=== PATIENT | female | born 1975 | race Caucasian/White ===

== ENCOUNTER 2018-04-15 08:08 | Outpatient (CLI) | payer BC ==
--- NOTE | 2018-04-15 09:15 | RAD ---
LUMBAR SPINE RADIOGRAPHS FOUR VIEWS: Date: 04-15-18 Provided Clinical History: Intervertebral disc disorder with radiculopathy. FINDINGS: Comparison is made with 03-23-17. 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 This was denoted L5 on the prior examination. 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 There is slight ant erolisthesis of L4 on L5. There is no evidence for abnormal translational motion with flexion or exte nsion. Lower lumbar spine facet degenerative changes are prominent. IMPRESSION: Stable exam. POS: OFF
--- NOTE | 2018-04-15 12:17 | MRI ---
MRI LUMBAR SPINE WITHOUT CONTRAST: Date: 04/15/18 HISTORY: Intervertebral disc disorder with radiculopathy of the lumbosacral region; low back pain with right l eg radiculopathy, which has been worsening. Patient fell 2 weeks ago FINDINGS: Comparison made with exam of MRI of 03/23/17. Correlation is also made with the lumbar radiographs of 04/15/18. Again, for the purpose of this discussion, the transitional vertebra has been labeled L5, similar to the previous MRIs. The vertebral body heights and marrow signal are maintained. Conus medullaris ends at L1. Annular fis sure involving the left posterolateral aspect of L3-4 disc is again noted. There is a tiny right fora ashkan disc protrusion at L4-5 level without impingement of the exiting nerve root or neural foraminal stenosis. There are facet hypertrophic changes at multiple levels, most prominent at L4-5 level. No central canal stenosis or significant neural foraminal stenosis is seen. The paraspinal musculature i s normal. IMPRESSION: Mild degenerative changes with tiny right disc protrusion at L4-5 level. No evidence of significant c entral canal or neural foraminal stenosis. POS: [facility]
== END 2018-04-15 08:09 | disposition home or self-care (01) ==
LOC: BICMRI 08:08
PROVIDERS: ATTEND Nurse Practitioner Family
DX: M51.17 Intervertebral disc disorders with radiculopathy, lumbosacral region (principal); M47.816 Spondylosis without myelopathy or radiculopathy, lumbar region; M51.26 Other intervertebral disc displacement, lumbar region
CPT/HCPCS: 72110; 72148

== ENCOUNTER 2018-07-17 06:29 | Day surgery (SDC) | payer BC ==
[2018-07-10 09:12] VITALS: BMI 45.7
--- NOTE | 2018-07-16 14:59 | HP ---
HISTORY OF PRESENT ILLNESS: Ms. De Jesus is a 43-year-old woman known to us from previous evaluations of essentially bilateral lower back pain and some right-sided radicular leg pain with a CT scan that ultimately revealed a large L5-S1 pseudoarthrosis on the right. She has been treating this with injections and therapy and while they provided some short-term relief. Her pain continues to return and is rather significant in nature. She hopes to move forward with surgery if possible. PAST MEDICAL HISTORY: Significant for back pain and chronic pain. CURRENT MEDICATIONS: 1. Cyclobenzaprine. 2. Tylenol No. 3. 3. Phentermine. ALLERGIES: NO KNOWN DRUG ALLERGIES. PAST SURGICAL HISTORY: Hysterectomy, section. PHYSICAL EXAMINATION: GENERAL: The patient is alert and oriented x3. MUSCULOSKELETAL: Gait is severely antalgic and slow. Lower extremity motor exam is limited by pain. ASSESSMENT: Lumbar back pain, lumbar radiculopathy, and spinal pseudarthrosis. PLAN: Dr. Thurston met with the patient, reviewed imaging, and advocated for L5-S1 fusion. He explained to the patient the risks, benefits, and alternatives to the procedure. The patient expressed understanding and elected to move forward with surgery as discussed. I do believe the patient is mentally competent and capable of making medical decisions for herself. We will move forward with surgery as planned. Job ID: [id number]
[2018-07-17] MEDS ORDERED: CEFAZOLIN 2 GM/50 ML BAG ONE ×2 (07:55→15:10)
[2018-07-17] MEDS ORDERED: Thrombin 5000 UNITS/5 ML VIAL ONE (09:00)
[2018-07-17] MEDS ORDERED: Bupivacaine HCl 0.5%/Epinephrine 1:200,000/PF 30 ml Vial ONE (09:00)
[2018-07-17] MEDS ORDERED: Fentanyl 100 MCG/2 ML VIAL ONE ×2 (09:10→12:23)
[2018-07-17] MEDS ORDERED: Ketamine 50 MG/ML (10ML VIAL) ONE (09:15)
[2018-07-17] MEDS ORDERED: Midazolam HCl 2 mg/2 ml Vial ONE (12:05)
--- NOTE | 2018-07-17 12:29 | OP ---
DATE OF PROCEDURE: 07/17/2018 PRINCIPAL MECHANICAL ENGINEER: Jere Saucedo PA-C. INDICATION: Pain. DIAGNOSIS: Lumbosacral pseudoarthrosis with back pain and radiculopathy. PROCEDURE PERFORMED: L5-S1 fusion. ANESTHESIA: General. DESCRIPTION OF PROCEDURE: The patient was brought into the operating room and placed under general anesthesia. She was flipped from the supine to prone position on operating room table. A linear incision was planned over L5 and S1. After prepping and draping and after an appropriate operative pause, the incision was created and the soft tissues were swept away from midline. A self-retaining retractor was placed in the wound for optimal exposure. After confirming the appropriate level C-arm fluoroscopy, high-speed cutting drill bit as well as Kerrisons were used to perform a laminectomy bilaterally in order to expose the medial wall of the pedicles at L5 and S1. With the aid of C-arm fluoroscopy, pedicles were placed into the pedicles. An intraoperative 3D CT scan was performed to confirm the appropriate location of the hardware. A earnestine was then placed across the screws and finally tightened. Allograft and autograft material were placed in the lateral confines of the instrumentation construct. The wound was irrigated. Hemostasis was maintained throughout. The wound was then closed in anatomic layers and a pressure dressing was applied. There were no known procedural complications. Job ID: [id number]
[2018-07-17] MEDS ORDERED: Metoclopramide HCl 10 MG/2 ML VIAL ONE (13:21)
[2018-07-17] MEDS ORDERED: Ondansetron PF 4 MG/2 ML Vial ONE (13:21)
[2018-07-17] MEDS ORDERED: PROVENTIL INHALER 6.7 G (200 INHALATIONS) ONE (13:21)
[2018-07-17] MEDS ORDERED: Rocuronium Bromide 10 MG/ML (10ML VIAL) ONE (13:21)
[2018-07-17] MEDS ORDERED: Lidocaine 1% PF 5 ML VIAL ONE (13:21)
[2018-07-17] MEDS ORDERED: Dexamethasone 20 MG/5 ML VIAL ONE (13:21)
[2018-07-17] MEDS ORDERED: PROPOFOL 200 MG/20 ML VIAL ONE (13:21)
[2018-07-17] MEDS ORDERED: Glycopyrrolate 0.2 MG/ML 5 ML SYRINGE ONE (13:21)
[2018-07-17] MEDS ORDERED: HYDROcodone/Acetaminophen 5/325 mg Tablet ONE (15:47)
== END 2018-07-17 16:08 | disposition home or self-care (01) ==
LOC: SDC 06:29
PROVIDERS: ATTEND Neurological Surgery
PROC: 0SG307J Fusion of Lumbosacral Joint with Autologous Tissue Substitute, Posterior Approach, Anterior Column, Open Approach (ICD-10-PCS; principal; 2018-07-17)
DX: M54.17 Radiculopathy, lumbosacral region (principal); Z90.710 Acquired absence of both cervix and uterus; Z98.890 Other specified postprocedural states; Z79.899 Other long term (current) drug therapy
CPT/HCPCS: 76000; C1713; J0670; J1100; J2001; J2250; J2405; J2704; J2765; J3010

== ENCOUNTER 2019-03-04 12:04 | Outpatient (CLI) | payer BC ==
--- NOTE | 2019-03-04 13:57 | ULT ---
THYROID ULTRASOUND: INDICATION: Nodule. COMPARISON: Comparison is made to a thyroid ultrasound dated 12/08/2412/26/2012. That exam described a tiny hypoechoic nodule in the upper left lobe measuring 1-2 mm. FINDINGS: On today's exam, there is a suggestion of an isoechoic nodule in the mid left lobe measuring approxim ately 1.0 cm. The borders are ill defined and this is not well seen in the longitudinal plane. There is a suggestion of a tiny cystic nodule in the superior right lobe measuring 3 mm. IMPRESSION: Question isoechoic nodule in the mid left lobe measuring up to 1 cm. This may represent a heterogene ous gland rather than a defined nodule. Recommend short-term followup with repeat thyroid ultrasound in 6 months to reevaluate. POS: [facility]
--- NOTE | 2019-03-04 14:09 | MMO ---
Bilateral MAMMO Bilat Screen [facility]. CLINICAL HISTORY: Patient is 43 years old and is seen for screening. The patient has no family history of breast cancer. The patient has no personal history of cancer. The patient has a history of right Ultrasound Guided Core Biopsy in August,. VIEWS: The views performed were: bilateral craniocaudal with tomosynthesis and bilateral mediolateral oblique with tomosynthesis. FILMS COMPARED: The present examination has been compared to prior imaging studies performed at [facility] on 08/09/2011 and 07/24/2016. This study has been interpreted with the assistance of computer-aided detection. MAMMOGRAM FINDINGS: There are scattered fibroglandular densities. There is a stable mass with associated biopsy clip seen in the right breast. There are no suspicious masses, suspicious calcifications, or new areas of architectural distortion. IMPRESSION: THERE IS NO MAMMOGRAPHIC EVIDENCE OF MALIGNANCY. A ROUTINE FOLLOW-UP MAMMOGRAM IN 1 YEAR IS RECOMMENDED. THE RESULTS OF THIS EXAM WERE SENT TO THE PATIENT. ACR BI-RADS Category 2 - Benign finding MAMMOGRAPHY NOTE: 1. A negative mammogram report should not delay a biopsy if a dominant of clinically suspicious mass is present. 2. Approximately 10% to 15% of breast cancers are not detected by mammography. 3. Adenosis and dense breasts may obscure an underlying neoplasm. Reported by: THAO TORIBIO MD Electonically Signed: [id number]
== END 2019-03-04 12:05 | disposition home or self-care (01) ==
LOC: BICMAMMO 12:04
PROVIDERS: ATTEND Family Medicine
DX: Z12.31 Encounter for screening mammogram for malignant neoplasm of breast (principal); E04.1 Nontoxic single thyroid nodule
CPT/HCPCS: 76536; 77063; 77067

== ENCOUNTER 2020-07-23 09:24 | Outpatient (CLI) | payer OTHER | END 2020-07-23 09:25 | disposition home or self-care (01) | LOC: DTY/OP 09:24 | PROVIDERS: ATTEND Surgery | DX: E66.01 Morbid (severe) obesity due to excess calories (principal) | CPT/HCPCS: 97802 ==

== ENCOUNTER 2020-08-04 08:35 | Outpatient (CLI) | payer OTHER | END 2020-08-04 08:36 | disposition home or self-care (01) | LOC: EKG 08:35 | PROVIDERS: ATTEND Family Medicine | DX: Z01.810 Encounter for preprocedural cardiovascular examination (principal) | CPT/HCPCS: 93005; 93010 ==

== ENCOUNTER 2020-09-03 13:30 | Inpatient (IN) | payer OTHER ==
[2020-09-08] MEDS ORDERED: Heparin 5,000 UNITS/ML VIAL ONE (10:39)
[2020-09-08] MEDS ORDERED: EPINEPHrine 1 MG/ML AMP ONE (10:43)
[2020-09-08] MEDS ORDERED: Bupivacaine 0.25% HCL 30 ML VIAL ONE (10:43)
[2020-09-08] MEDS ORDERED: Midazolam HCl 2 mg/2 ml Vial ONE (11:44)
[2020-09-08] MEDS ORDERED: Fentanyl 100 MCG/2 ML VIAL ONE ×5 (11:44→16:05)
[2020-09-08] MEDS ORDERED: PROPOFOL 200 MG/20 ML VIAL ONE (12:39)
[2020-09-08] MEDS ORDERED: Dexamethasone 20 MG/5 ML VIAL ONE (12:39)
[2020-09-08] MEDS ORDERED: PHENYLEPHRINE-NS 100 MCG/ML 10 ML SYRINGE ONE (12:39)
[2020-09-08] MEDS ORDERED: Ondansetron PF 4 MG/2 ML Vial ONE (12:39)
[2020-09-08] MEDS ORDERED: Rocuronium Bromide 10 MG/ML (10ML VIAL) ONE (12:39)
[2020-09-08] MEDS ORDERED: Lidocaine 1% PF 5 ML VIAL ONE (12:39)
[2020-09-08] MEDS ORDERED: Esmolol 100 MG/10 ML VIAL ONE (12:39)
[2020-09-08] MEDS ORDERED: Succinylcholine 200 MG/10 ml SYRINGE FS ONE (14:33)
[2020-09-08] MEDS ORDERED: SUGAMMADEX SODIUM 200 MG/2 ML VIAL ONE (14:34)
[2020-09-08] MEDS ORDERED: Naloxone HCl 0.4 mg/ml Vial IV PRN (15:15)
[2020-09-08] MEDS ORDERED: Meperidine HCl/PF 25 MG/ML VIAL SLOW IVP PRN (15:15)
[2020-09-08] MEDS ORDERED: fentaNYL Citrate/PF 2,000 MCG in Sodium Chloride 0.9% 60 ML IV PRN (15:15)
[2020-09-08] MEDS ORDERED: Promethazine HCl 25 MG/ML VIAL SLOW IVP PRN (15:15)
[2020-09-08] MEDS ORDERED: Promethazine HCl 25 MG/ML VIAL IM PRN ×3 (15:15→15:18)
[2020-09-08] MEDS ORDERED: diphenhydrAMINE 50 MG/ML VIAL IVP PRN ×2 (15:15→15:18)
[2020-09-08] MEDS ORDERED: Communication Order-Pharmacy FS SCH (15:15)
[2020-09-08] MEDS ORDERED: diphenhydrAMINE 50 MG/ML VIAL IM PRN (15:15)
[2020-09-08] MEDS ORDERED: diphenhydrAMINE 25 MG CAP PO PRN (15:15)
[2020-09-08] MEDS ORDERED: Ondansetron HCl/PF 4 MG/2 ML Vial IVP PRN (15:15)
[2020-09-08] MEDS ORDERED: Zolpidem Tartrate 5 MG TAB PO PRN (15:15)
[2020-09-08] MEDS ORDERED: Ondansetron PF 4 MG/2 ML Vial IVP PRN ×2 (15:15→15:18)
[2020-09-08] MEDS ORDERED: Dextrose 5% in Water 1,000 ML IV PRN (15:18)
[2020-09-08] MEDS ORDERED: Albuterol 200 PUFF (6.7GM INHALER) INH PRN (15:18)
[2020-09-08] MEDS ORDERED: Dextrose 50% Abboject 50 ML SYRINGE SLOW IVP PRN (15:18)
[2020-09-08] MEDS ORDERED: Hydrocodone-Acetamin 15 ML UDCUP PO PRN (15:18)
[2020-09-08] MEDS ORDERED: hydrALAZINE 20 MG/ML VIAL SLOW IVP PRN (15:18)
[2020-09-08] MEDS: D5 1/2 NS w/20 mEq KCL 1,000 ML IV SCH (19:00)
[2020-09-08 19:45] VITALS: BMI 49.3
[2020-09-08] MEDS ORDERED: Enoxaparin Sodium 40 MG/0.4 ML SYRINGE SC SCH (21:00)
[2020-09-08] MEDS ORDERED: Pregabalin 50 MG CAP PO SCH (21:00)
[2020-09-08] MEDS ORDERED: QUETIAPINE FUMARATE 50 MG PO SCH (21:00)
[2020-09-09] MEDS: D5 1/2 NS w/20 mEq KCL 1,000 ML IV SCH ×2 (03:07→11:09)
[2020-09-09 05:58] LABS: #Lymphocytes 1.7 thou/uL (1.20-3.40); #Monocytes 0.7 thou/uL (0.11-0.59); #Neutrophils 7.8 thou/uL (1.40-6.50); %Basophils 0.1 % (0.0-1.0); %Eosinophils 0.1 % (0.0-10.0); %Lymphocytes 16.6 % (21.0-51.0); %Monocytes 7.1 % (0.0-10.0); %Neutrophils 76.2 % (42.0-75.0); Mean Corpuscular HGB CONC 34.8 g/dL (32.0-36.0); Mean Corpuscular Hemoglobin 30.5 pg (27.0-31.0); Mean Corpuscular Volume 87.7 fL (78.0-98.0); Mean Platelet Volume 8.4 fL (7.4-10.4); Platelet Count 279 thou/uL (130-400); RBC Distribution Width 11.8 % (11.5-14.5); Red Blood Cell (RBC) Count 3.93 mill/uL (4.20-5.40); White Blood Cell (WBC) Count 10.2 thou/uL (4.8-10.8)
[2020-09-09 06:14] LABS: Anion Gap 10 mmol/L (10-20); BUN (Urea Nitrogen) 8 mg/dL (7.0-18.7); Calc. Creatinine Clearance 217 mL/min (70-130); Calcium 8.1 mg/dL (7.8-10.44); Carbon Dioxide 24 mmol/L (22-29); Chloride 104 mmol/L (98-107); Glucose 133 mg/dL (70-105); Potassium 4.1 mmol/L (3.5-5.1); Sodium 134 mmol/L (136-145)
[2020-09-09] MEDS: Hydrocodone-Acetamin 15 ML UDCUP PO PRN ×2 (08:24→12:24)
[2020-09-09] MEDS ORDERED: SYMBICORT INH SCH (09:00)
[2020-09-09] MEDS ORDERED: Pantoprazole 40 MG VIAL IVP SCH (09:00)
[2020-09-09 12:18] VITALS: BP 113/74; TEMP 98.4
== END 2020-09-09 12:30 | disposition home or self-care (01) | DRG 621 ==
LOC: SURG A 09-08 10:02 → EDSTATUS 09-08 13:30 → SURG B 09-08 17:46
PROVIDERS: ADMIT Surgery; ATTEND Surgery
PROC: 0DB64Z3 Excision of Stomach, Percutaneous Endoscopic Approach, Vertical (ICD-10-PCS; principal; 2020-09-08)
PROC: 0BQT4ZZ Repair Diaphragm, Percutaneous Endoscopic Approach (ICD-10-PCS; 2020-09-08)
PROC: 8E0W4CZ Robotic Assisted Procedure of Trunk Region, Percutaneous Endoscopic Approach (ICD-10-PCS; 2020-09-08)
PROC: 0DJ08ZZ Inspection of Upper Intestinal Tract, Via Natural or Artificial Opening Endoscopic (ICD-10-PCS; 2020-09-08)
DX: E66.01 Morbid (severe) obesity due to excess calories (principal); Z20.822 Contact with and (suspected) exposure to COVID-19; F32.9 Major depressive disorder, single episode, unspecified; G89.29 Other chronic pain; M54.9 Dorsalgia, unspecified; K44.9 Diaphragmatic hernia without obstruction or gangrene; Z79.899 Other long term (current) drug therapy; Z68.42 Body mass index [BMI] 45.0-49.9, adult; Z98.51 Tubal ligation status; Z90.710 Acquired absence of both cervix and uterus; Z83.3 Family history of diabetes mellitus; Z87.891 Personal history of nicotine dependence
CPT/HCPCS: 36415; 80048; 85025; 88307; C9113; J0171; J0690; J1100; J1644; J1650; J2250; J2405; J2704; J3010; J3480; S0020

== ENCOUNTER 2020-10-04 10:18 | Day surgery (SDC) | payer OTHER ==
[2020-10-04] MEDS ORDERED: Sodium Chloride 0.9% 20 ML ONE (10:25)
[2020-10-04] MEDS ORDERED: Ondansetron PF 4 MG/2 ML Vial IVP PRN (10:29)
[2020-10-04] MEDS ORDERED: Sodium Chloride 0.9% 1,000 ML IV SCH (10:30)
[2020-10-04] MEDS ORDERED: Thiamine HCl 200 MG/2 ML VIAL SLOW IVP SCH (10:30)
[2020-10-04] MEDS ORDERED: Multivitamins, Adult 10 ML in Sodium Chloride 0.9% 1,000 ML IV SCH (11:00)
== END 2020-10-04 13:04 | disposition home or self-care (01) ==
LOC: ONC/OP 10:18
PROVIDERS: ATTEND Surgery
DX: E86.0 Dehydration (principal)
CPT/HCPCS: 96361; 96365; 96366; 96375; J3411; J7050

== ENCOUNTER 2020-10-18 09:32 | Day surgery (SDC) | payer OTHER ==
[2020-10-18] MEDS ORDERED: Ondansetron PF 4 MG/2 ML Vial IVP PRN (09:46)
[2020-10-18] MEDS ORDERED: Sodium Chloride 0.9% 20 ML ONE (09:48)
[2020-10-18] MEDS ORDERED: Sodium Chloride 0.9% 1,000 ML IV SCH (10:00)
[2020-10-18] MEDS ORDERED: Multivitamins, Adult 10 ML in Sodium Chloride 0.9% 1,000 ML IV SCH (10:00)
[2020-10-18] MEDS ORDERED: Thiamine HCl 200 MG/2 ML VIAL SLOW IVP SCH (10:00)
[2020-10-18 11:36] VITALS: BP 119/68; TEMP 97.8
== END 2020-10-18 12:33 | disposition home or self-care (01) ==
LOC: ONC/OP 09:32
PROVIDERS: ATTEND Surgery
DX: E86.0 Dehydration (principal)
CPT/HCPCS: 96361; 96365; 96366; J2405; J3411; J7050

== ENCOUNTER 2020-10-19 11:04 | Inpatient (IN) | payer OTHER ==
[~2020-10-19 11:04] MED LIST: Iopamidol 370 76% 100 ML VIAL ONE; Iopamidol 370 76% 50 ML VIAL FS ONE
[2020-10-19] MEDS ORDERED: DOBUTamine 250 MG/20 ML VIAL ONE (11:47)
[2020-10-19] MEDS ORDERED: Promethazine HCl 25 MG/ML VIAL ONE (11:50)
[2020-10-19] MEDS ORDERED: Morphine 4 MG/ML VIAL ONE (11:50)
[2020-10-19 11:59] LABS: #Basophils 0.1 thou/uL (0.0-0.2); #Eosinphils 0.2 thou/uL (0.0-0.7); #Lymphocytes 1.8 thou/uL (1.20-3.40); #Monocytes 1.1 thou/uL (0.11-0.59); #Neutrophils 8.3 thou/uL (1.40-6.50); %Basophils 0.5 % (0.0-1.0); %Eosinophils 1.5 % (0.0-10.0); %Lymphocytes 15.8 % (21.0-51.0); %Neutrophils 72.2 % (42.0-75.0); Hemoglobin 14.5 g/dL (12.0-16.0); Mean Corpuscular Hemoglobin 28.7 pg (27.0-31.0); Mean Platelet Volume 10.3 fL (7.4-10.4); Platelet Count 229 thou/uL (130-400); RBC Distribution Width 12.5 % (11.5-14.5); Red Blood Cell (RBC) Count 5.04 mill/uL (4.20-5.40); White Blood Cell (WBC) Count 11.5 thou/uL (4.8-10.8)
[2020-10-19 12:27] LABS: ALT (SGPT) 16 U/L (8-55); AST (SGOT) 12 U/L (5-34); Albumin 3.8 g/dL (3.5-5.0); Alkaline Phosphatase 58 U/L (40-110); Anion Gap 18 mmol/L (10-20); BUN (Urea Nitrogen) 5 mg/dL (7.0-18.7); Bilirubin, Total 1.6 mg/dL (0.2-1.2); Calc. Creatinine Clearance 0 mL/min (70-130); Calcium 9.4 mg/dL (7.8-10.44); Carbon Dioxide 17 mmol/L (22-29); Chloride 110 mmol/L (98-107); Glucose 102 mg/dL (70-105); Lipase 48 U/L (8-78); Protein, Total 6.8 g/dL (6.0-8.3); Sodium 142 mmol/L (136-145)
[2020-10-19 12:29] LABS: Potassium 2.9 mmol/L (3.5-5.1)
[2020-10-19] MEDS ORDERED: Ondansetron PF 4 MG/2 ML Vial ONE (13:13)
[2020-10-19] MEDS ORDERED: Magnesium 2 GM/50 ML BAG (IN WATER) ONE (13:13)
[2020-10-19] MEDS ORDERED: Ondansetron ODT 4 MG TAB SL PRN (20:45)
[2020-10-19] MEDS ORDERED: Ondansetron PF 4 MG/2 ML Vial IVP PRN (20:45)
[2020-10-19] MEDS ORDERED: Sodium Chloride 0.9% 1,000 ML IV SCH (20:45)
[2020-10-19] MEDS ORDERED: Promethazine HCl 25 MG/ML VIAL IM PRN (21:13)
[2020-10-19] MEDS ORDERED: Dextrose 50% Abboject 50 ML SYRINGE SLOW IVP PRN (21:13)
[2020-10-19] MEDS ORDERED: Dextrose 5% in Water 1,000 ML IV PRN (21:13)
[2020-10-19] MEDS ORDERED: hydrALAZINE 20 MG/ML VIAL SLOW IVP PRN (21:13)
[2020-10-19] MEDS: Enoxaparin Sodium 40 MG/0.4 ML SYRINGE SC SCH (21:32)
[2020-10-19 21:50] VITALS: BMI 43.9
[2020-10-19] MEDS: Potassium Chloride 20 MEQ in Premix Bag 1 BAG IVPB SCH (23:28)
[2020-10-19] MEDS: D5 1/2 NS w/20 mEq KCL 1,000 ML IV SCH (23:35)
[2020-10-20 01:16] LABS: SARS-CoV-2 PCR by NAA Not Detected (NotDetected)
[2020-10-20 05:58] LABS: Anion Gap 12 mmol/L (10-20); BUN (Urea Nitrogen) Less than 4 mg/dL (7.0-18.7); Calc. Creatinine Clearance 184 mL/min (70-130); Calcium 7.7 mg/dL (7.8-10.44); Carbon Dioxide 16 mmol/L (22-29); Chloride 112 mmol/L (98-107); Glucose 120 mg/dL (70-105); Sodium 137 mmol/L (136-145)
[2020-10-20] MEDS ORDERED: Calcium Gluconate 4.6 MEQ in Sodium Chloride 0.9% 100 ML IVPB SCH (07:06)
[2020-10-20] MEDS: Ondansetron PF 4 MG/2 ML Vial IVP PRN ×2 (08:36→14:43)
[2020-10-20] MEDS: D5 1/2 NS w/20 mEq KCL 1,000 ML IV SCH ×3 (08:36→21:11)
[2020-10-20] MEDS: Pantoprazole 40 MG VIAL IVP SCH (08:37)
[2020-10-20] MEDS: Potassium Chloride 20 MEQ in Premix Bag 1 BAG IVPB SCH ×2 (09:41→12:04)
[2020-10-20] MEDS: Enoxaparin Sodium 40 MG/0.4 ML SYRINGE SC SCH (21:11)
[2020-10-21] MEDS: Pantoprazole 40 MG VIAL IVP SCH (07:22)
[2020-10-21] MEDS: D5 1/2 NS w/20 mEq KCL 1,000 ML IV SCH ×3 (07:22→21:56)
[2020-10-21 08:37] LABS: Anion Gap 11 mmol/L (10-20); BUN (Urea Nitrogen) Less than 4 mg/dL (7.0-18.7); Calc. Creatinine Clearance 196 mL/min (70-130); Calcium 8.2 mg/dL (7.8-10.44); Carbon Dioxide 22 mmol/L (22-29); Chloride 107 mmol/L (98-107); Glucose 117 mg/dL (70-105); Sodium 137 mmol/L (136-145)
[2020-10-21 09:28] LABS: Potassium 2.8 mmol/L (3.5-5.1)
[2020-10-21] MEDS ORDERED: Promethazine HCl 25 MG/ML VIAL ONE (09:48)
[2020-10-21] MEDS ORDERED: Fentanyl 100 MCG/2 ML VIAL ONE (10:23)
[2020-10-21] MEDS ORDERED: PROPOFOL 200 MG/20 ML VIAL ONE (10:40)
[2020-10-21] MEDS ORDERED: Ondansetron HCl/PF 4 MG/2 ML Vial IVP PRN (10:57)
[2020-10-21] MEDS ORDERED: Promethazine HCl 25 MG/ML VIAL IM PRN (10:57)
[2020-10-21] MEDS ORDERED: Promethazine HCl 25 MG/ML VIAL SLOW IVP PRN (10:57)
[2020-10-21] MEDS: Potassium Chloride 20 MEQ in Premix Bag 1 BAG IVPB SCH ×2 (14:08→18:59)
[2020-10-21] MEDS: Ondansetron PF 4 MG/2 ML Vial IVP PRN (18:10)
[2020-10-21] MEDS: Enoxaparin Sodium 40 MG/0.4 ML SYRINGE SC SCH (21:54)
[2020-10-22 01:52] LABS: Potassium 2.9 mmol/L (3.5-5.1)
[2020-10-22] MEDS: Potassium Chloride 20 MEQ in Premix Bag 1 BAG IVPB SCH ×2 (02:20→07:50)
[2020-10-22 05:57] LABS: #Basophils 0.1 thou/uL (0.0-0.2); #Eosinphils 0.4 thou/uL (0.0-0.7); #Lymphocytes 3.7 thou/uL (1.20-3.40); #Monocytes 0.8 thou/uL (0.11-0.59); #Neutrophils 2.5 thou/uL (1.40-6.50); %Basophils 1.4 % (0.0-1.0); %Eosinophils 5.6 % (0.0-10.0); %Lymphocytes 49.1 % (21.0-51.0); %Monocytes 10.4 % (0.0-10.0); %Neutrophils 33.7 % (42.0-75.0); Hemoglobin 14.3 g/dL (12.0-16.0); Mean Corpuscular HGB CONC 35.4 g/dL (32.0-36.0); Mean Corpuscular Hemoglobin 30.5 pg (27.0-31.0); Mean Corpuscular Volume 86.2 fL (78.0-98.0); Platelet Count 210 thou/uL (130-400); RBC Distribution Width 12.4 % (11.5-14.5); Red Blood Cell (RBC) Count 4.67 mill/uL (4.20-5.40); White Blood Cell (WBC) Count 7.5 thou/uL (4.8-10.8)
[2020-10-22 06:18] LABS: Anion Gap 11 mmol/L (10-20); BUN (Urea Nitrogen) Less than 4 mg/dL (7.0-18.7); Calc. Creatinine Clearance 206 mL/min (70-130); Calcium 8.9 mg/dL (7.8-10.44); Carbon Dioxide 23 mmol/L (22-29); Chloride 108 mmol/L (98-107); Glucose 91 mg/dL (70-105); Potassium 3.3 mmol/L (3.5-5.1); Sodium 139 mmol/L (136-145)
[2020-10-22] MEDS: D5 1/2 NS w/20 mEq KCL 1,000 ML IV SCH ×3 (06:26→22:25)
[2020-10-22] MEDS: Ondansetron PF 4 MG/2 ML Vial IVP PRN (07:52)
[2020-10-22] MEDS: Pantoprazole 40 MG VIAL IVP SCH (07:52)
[2020-10-22] MEDS ORDERED: Calcium Gluconate 4.6 MEQ in Sodium Chloride 0.9% 100 ML IVPB SCH (13:00)
[2020-10-22] MEDS ORDERED: Potassium Chloride 40 MEQ in Sodium Chloride 0.9% 250 ML 250 ML IVPB SCH (19:45)
[2020-10-22] MEDS: Enoxaparin Sodium 40 MG/0.4 ML SYRINGE SC SCH (20:38)
[2020-10-22] MEDS ORDERED: QUEtiapine Fumarate ER 50 MG TAB PO SCH ×2 (21:00)
[2020-10-23] MEDS: D5 1/2 NS w/20 mEq KCL 1,000 ML IV SCH ×2 (05:41→15:28)
[2020-10-23 05:52] LABS: Anion Gap 8 mmol/L (10-20); BUN (Urea Nitrogen) Less than 4 mg/dL (7.0-18.7); Calc. Creatinine Clearance 216 mL/min (70-130); Calcium 8.5 mg/dL (7.8-10.44); Carbon Dioxide 26 mmol/L (22-29); Chloride 108 mmol/L (98-107); Glucose 94 mg/dL (70-105); Potassium 3.1 mmol/L (3.5-5.1); Sodium 139 mmol/L (136-145)
[2020-10-23] MEDS: Pantoprazole 40 MG VIAL IVP SCH (09:18)
[2020-10-23 13:42] LABS: Magnesium 1.7 mg/dL (1.6-2.6)
[2020-10-23 13:47] LABS: Phosphorus 1.9 mg/dL (2.3-4.7)
[2020-10-23] MEDS ORDERED: Potassium Phosphate 30 MMOL in Sodium Chloride 0.9% 250 ML 250 ML IVPB SCH (14:00)
[2020-10-23] MEDS ORDERED: Magnesium 2 GM/50 ML 2 GM in Premix Bag 1 BAG IVPB SCH (14:00)
[2020-10-23] MEDS: Potassium Bicarbonate/Cit Ac 20 MEQ TAB PO SCH (17:45)
[2020-10-23] MEDS: Enoxaparin Sodium 40 MG/0.4 ML SYRINGE SC SCH (21:04)
[2020-10-24 05:13] LABS: Anion Gap 10 mmol/L (10-20); BUN (Urea Nitrogen) Less than 4 mg/dL (7.0-18.7); Calc. Creatinine Clearance 220 mL/min (70-130); Calcium 7.7 mg/dL (7.8-10.44); Carbon Dioxide 25 mmol/L (22-29); Chloride 106 mmol/L (98-107); Glucose 109 mg/dL (70-105); Magnesium 1.9 mg/dL (1.6-2.6); Phosphorus 4.2 mg/dL (2.3-4.7); Potassium 3.1 mmol/L (3.5-5.1); Sodium 138 mmol/L (136-145)
[2020-10-24] MEDS: D5 1/2 NS w/20 mEq KCL 1,000 ML IV SCH ×3 (05:56→05:57)
[2020-10-24] MEDS: Potassium Bicarbonate/Cit Ac 20 MEQ TAB PO SCH (08:54)
[2020-10-24] MEDS: Pantoprazole 40 MG VIAL IVP SCH (08:54)
[2020-10-24] MEDS ORDERED: Magnesium Sulfate 3 GM in Sodium Chloride 0.9% 100 ML IVPB SCH (13:00)
[2020-10-24] MEDS: Potassium Chloride 20 MEQ in Premix Bag 1 BAG IVPB SCH ×2 (15:21→18:01)
[2020-10-24] MEDS: Enoxaparin Sodium 40 MG/0.4 ML SYRINGE SC SCH (20:33)
[2020-10-24 21:54] LABS: Anion Gap 11 mmol/L (10-20); BUN (Urea Nitrogen) Less than 4 mg/dL (7.0-18.7); Calc. Creatinine Clearance 209 mL/min (70-130); Calcium 8.1 mg/dL (7.8-10.44); Carbon Dioxide 23 mmol/L (22-29); Chloride 107 mmol/L (98-107); Glucose 90 mg/dL (70-105); Magnesium 2.5 mg/dL (1.6-2.6); Phosphorus 3.1 mg/dL (2.3-4.7); Potassium 4.1 mmol/L (3.5-5.1); Sodium 137 mmol/L (136-145)
[2020-10-25 05:38] LABS: Anion Gap 9 mmol/L (10-20); BUN (Urea Nitrogen) Less than 4 mg/dL (7.0-18.7); Calc. Creatinine Clearance 224 mL/min (70-130); Carbon Dioxide 24 mmol/L (22-29); Chloride 108 mmol/L (98-107); Glucose 90 mg/dL (70-105); Magnesium 2.3 mg/dL (1.6-2.6); Phosphorus 3.6 mg/dL (2.3-4.7); Potassium 3.6 mmol/L (3.5-5.1); Sodium 137 mmol/L (136-145)
[2020-10-25] MEDS: Pantoprazole 40 MG VIAL IVP SCH (08:39)
[2020-10-25 11:48] VITALS: BP 114/78; TEMP 98.5
== END 2020-10-25 13:30 | disposition home or self-care (01) | DRG 641 ==
LOC: ERS 11:04 → ERHOLD 13:26 → SJJU 21:03 → OBSVTOIN 10-21 16:33
PROVIDERS: ADMIT Surgery; ATTEND Surgery
PROC: 0DJ08ZZ Inspection of Upper Intestinal Tract, Via Natural or Artificial Opening Endoscopic (ICD-10-PCS; principal; 2020-10-21)
PROC: 02HV33Z Insertion of Infusion Device into Superior Vena Cava, Percutaneous Approach (ICD-10-PCS; 2020-10-22)
PROC: B518ZZA Fluoroscopy of Superior Vena Cava, Guidance (ICD-10-PCS; 2020-10-22)
DX: E86.0 Dehydration (principal); K22.10 Ulcer of esophagus without bleeding; Z68.41 Body mass index [BMI] 40.0-44.9, adult; E87.6 Hypokalemia; Z20.822 Contact with and (suspected) exposure to COVID-19; J30.2 Other seasonal allergic rhinitis; G89.4 Chronic pain syndrome; M54.9 Dorsalgia, unspecified; F32.9 Major depressive disorder, single episode, unspecified; E83.39 Other disorders of phosphorus metabolism; E66.01 Morbid (severe) obesity due to excess calories; Z98.51 Tubal ligation status; Z98.84 Bariatric surgery status; Z79.899 Other long term (current) drug therapy; Z87.891 Personal history of nicotine dependence
CPT/HCPCS: 36415; 36569; 74177; 80048; 80053; 83690; 83735; 84100; 85025; 87635; 93005; 96361; 96365; 96366; 96367; 96375; 96376; C1751; C9113; G0378; J1250; J1650; J2001; J2270; J2405; J2550; J2704; J3010; J3411; J3475; J3480; J3490; J7050; Q9967; U0003; U0005

== ENCOUNTER 2020-11-04 09:46 | Day surgery (SDC) | payer OTHER ==
[2020-11-04] MEDS ORDERED: Ondansetron PF 4 MG/2 ML Vial IVP PRN (09:51)
[2020-11-04] MEDS ORDERED: Sodium Chloride 0.9% 1,000 ML IV SCH (10:00)
[2020-11-04] MEDS ORDERED: Multivitamins, Adult 10 ML, Thiamine HCl 100 MG in Sodium Chloride 0.9% 1,000 ML IV SCH (10:00)
[2020-11-04 10:45] VITALS: BP 127/77; TEMP 98.2
== END 2020-11-04 12:35 | disposition home or self-care (01) ==
LOC: ONC/OP 09:46
PROVIDERS: ATTEND Surgery
DX: E86.0 Dehydration (principal)
CPT/HCPCS: 96361; 96365; 96366; J1642; J3411; J7050

== ENCOUNTER 2021-10-02 02:04 | Emergency (ER) | payer OTHER ==
[2021-10-02] MEDS ORDERED: Ketorolac Tromethamine 30 MG/ML VIAL ONE (02:31)
[2021-10-02] MEDS ORDERED: Ondansetron PF 4 MG/2 ML Vial ONE (02:31)
[2021-10-02] MEDS ORDERED: Morphine 4 MG/ML VIAL ONE (02:31)
[2021-10-02 02:59] LABS: Bacteria/HPF None Seen HPF (None Seen); Bilirubin Negative (Negative); Blood, Urine 3+ (Negative); Clarity Clear (Clear); Glucose, Urine (Dipstick) Normal (Negative); Ketone, Urine 100 mg/dL (Negative); Leukocyte Negative Leu/uL (Negative); Mucous/LPF Rare LPF (<2+); Nitrite Negative (Negative); Protein, Urine (Dipstick) 100 mg/dL (Neg-Trace); RBC/HPF Greater than 50 HPF (0-3); Specific Gravity, Urine 1.026 (1.002-1.036); Squamous Epithelial 0-3 HPF (0-3); Urobilinogen Normal mg/dL (Less than 2); pH, Urine 5.5 (5.0-9.0)
[2021-10-02 03:10] LABS: ALT (SGPT) 9 U/L (8-55); AST (SGOT) 13 U/L (5-34); Albumin 4.1 g/dL (3.5-5.0); Alkaline Phosphatase 58 U/L (40-110); Anion Gap 14 mmol/L (10-20); BUN (Urea Nitrogen) 13 mg/dL (7.0-18.7); Bilirubin, Total 1.1 mg/dL (0.2-1.2); Calc. Creatinine Clearance 0 mL/min (70-130); Calcium 9.1 mg/dL (7.8-10.44); Carbon Dioxide 25 mmol/L (22-29); Chloride 104 mmol/L (98-107); Globulin 2.7 g/dL (2.4-3.5); Glucose 102 mg/dL (70-105); Lipase 10 U/L (8-78); Magnesium 2.1 mg/dL (1.6-2.6); Potassium 3.7 mmol/L (3.5-5.1); Protein, Total 6.8 g/dL (6.0-8.3); Sodium 139 mmol/L (136-145)
[2021-10-02 03:37] LABS: BHCG - Serum Negative (NEGATIVE); Pregs Control Background? CLEAR/WHITE (CLR/WHITE); Pregs Control Bar Appear? YES (CONTROL BAR)
[2021-10-02 03:49] LABS: Pregu Control Background? CLEAR/WHITE (CLR/WHITE); Pregu Control Bar Appear? YES (CONTROL BAR)
[2021-10-02 03:50] LABS: Specific Gravity 1.026 (1.002-1.036)
[2021-10-02 03:52] LABS: Pregnancy Test - Urine (BHCG) Negative (Negative)
[2021-10-02] MEDS ORDERED: cefTRIAXone\\ROCEPHIN 1 GM VIAL ONE (04:44)
[2021-10-02] MEDS ORDERED: Iopamidol 370 76% 100 ML VIAL ONE (09:08)
== END 2021-10-02 07:12 | disposition home or self-care (01) ==
LOC: ERS 02:04
DX: N20.0 Calculus of kidney (principal); Z87.891 Personal history of nicotine dependence
CPT/HCPCS: 71045; 74177; 80053; 81003; 81015; 81025; 83605; 83690; 83735; 83880; 84443; 84703; 93005; 96374; 96375; J0696; J1885; J2270; J2405; Q9967

== ENCOUNTER 2022-12-06 15:02 | Outpatient (CLI) | payer OTHER ==
[2022-12-06 15:58] LABS: #Basophils 0.1 10x3/uL (0.0-0.2); #Eosinphils 0.2 10x3/uL (0.0-0.5); #Monocytes 0.6 10x3/uL (0.0-1.1); #Neutrophils 2.7 10x3/uL (1.5-8.4); %Basophils 0.8 % (0.0-2.0); %Eosinophils 3.9 % (0.0-6.0); %Lymphocytes 43.2 % (18.0-47.0); %Monocytes 8.9 % (0.0-10.0); Hemoglobin 12.3 g/dL (12.0-15.5); Mean Corpuscular HGB CONC 33.6 g/dL (32.0-36.0); Mean Corpuscular Hemoglobin 29.1 pg (27.0-33.0); Mean Corpuscular Volume 86.7 fl (81.6-98.3); Mean Platelet Volume 10.9 fl (7.4-10.4); Platelet Count 264 10x3/uL (150-450); RBC Distribution Width 12.9 % (11.5-14.5); Red Blood Cell (RBC) Count 4.22 10x6/uL (3.90-5.03); White Blood Cell (WBC) Count 6.2 10x3/uL (3.5-10.5)
[2022-12-06 16:14] LABS: Anion Gap 10 mmol/L (10-20); BUN (Urea Nitrogen) 16 mg/dL (7.0-18.7); Calc. Creatinine Clearance 0 mL/min (70-130); Carbon Dioxide 27 mmol/L (22-29); Chloride 106 mmol/L (98-107); Estimated GFR 104; Glucose 89 mg/dL (70-105); Sodium 139 mmol/L (136-145)
== END 2022-12-06 15:03 | disposition home or self-care (01) ==
LOC: LABBT 15:02
PROVIDERS: ATTEND Orthopaedic Surgery
DX: Z01.812 Encounter for preprocedural laboratory examination (principal); S83.251D Bucket-handle tear of lateral meniscus, current injury, right knee, subsequent encounter
CPT/HCPCS: 80048; 85025

== ENCOUNTER 2022-12-08 06:11 | Day surgery (SDC) | payer OTHER ==
[2022-12-06 12:38] VITALS: BMI 28.9
[2022-12-08] MEDS ORDERED: fentaNYL 50 mcg/mL 1 mL Vial ONE ×2 (06:42→09:12)
[2022-12-08] MEDS ORDERED: PROPOFOL 20 ML ONE (06:57)
[2022-12-08] MEDS ORDERED: Lidocaine 1% (PF) 30 ML VIAL ONE (06:57)
[2022-12-08] MEDS ORDERED: Bupivacaine PF 0.5% 30 ML VIAL ONE (06:57)
[2022-12-08] MEDS ORDERED: Sodium Chloride 0.9% 100 ML ONE (07:01)
[2022-12-08] MEDS ORDERED: CEFAZOLIN 2 GM VIAL ONE (07:01)
[2022-12-08] MEDS ORDERED: Bupivacaine HCl 0.5%/Epinephrine 1:200,000/PF 30 ml Vial ONE (07:07)
[2022-12-08] MEDS ORDERED: Lidocaine 2% PF 5 ML VIAL ONE (07:07)
[2022-12-08] MEDS ORDERED: Dexamethasone 20 MG/5 ML VIAL ONE (07:38)
[2022-12-08] MEDS ORDERED: PROPOFOL 200 MG/20 ML VIAL ONE (07:38)
[2022-12-08] MEDS ORDERED: Ondansetron PF 4 MG/2 ML Vial ONE (07:38)
[2022-12-08] MEDS ORDERED: Lidocaine 1% PF 5 ML VIAL ONE (07:38)
[2022-12-08] MEDS ORDERED: Meperidine HCl/PF 25 MG/ML VIAL ONE (08:35)
[2022-12-08] MEDS ORDERED: HYDROcodone/Acetaminophen 5/325 mg Tablet ONE (09:46)
== END 2022-12-08 10:19 | disposition home or self-care (01) ==
LOC: SDC 06:11
PROVIDERS: ATTEND Orthopaedic Surgery
PROC: 0SBC4ZZ Excision of Right Knee Joint, Percutaneous Endoscopic Approach (ICD-10-PCS; principal; 2022-12-08)
DX: S83.281A Other tear of lateral meniscus, current injury, right knee, initial encounter (principal); J45.909 Unspecified asthma, uncomplicated; F32.A Depression, unspecified; Z90.710 Acquired absence of both cervix and uterus; Z87.891 Personal history of nicotine dependence; Z98.84 Bariatric surgery status; X58.XXXA Exposure to other specified factors, initial encounter
CPT/HCPCS: J1100; J2001; J2175; J2405; J2704; J3010; J3490; S0020

== ENCOUNTER 2023-07-25 09:43 | Outpatient (CLI) | payer OTHER | END 2023-07-25 09:44 | disposition home or self-care (01) | LOC: MRI 09:43 | PROVIDERS: ATTEND Psychiatry & Neurology Neurology | DX: R74.01 Elevation of levels of liver transaminase levels (principal) | CPT/HCPCS: 70551; 93880 ==

== ENCOUNTER 2023-10-15 13:30 | Outpatient (CLI) | payer OTHER ==
[2023-10-15 14:05] LABS: #Basophils 0.06 10x3/uL (0.0-0.2); #Eosinphils 0.31 10x3/uL (0.0-0.5); #Monocytes 0.74 10x3/uL (0.0-1.1); #Neutrophils 4.32 10x3/uL (1.5-8.4); %Basophils 0.8 % (0.0-2.0); %Eosinophils 3.9 % (0.0-6.0); %Lymphocytes 31.6 % (18.0-47.0); %Monocytes 9.3 % (0.0-10.0); %Neutrophils 54.1 % (40.0-75.0); Hemoglobin 12.8 g/dL (12.0-15.5); Mean Corpuscular HGB CONC 34.6 g/dL (32.0-36.0); Mean Corpuscular Hemoglobin 30.2 pg (27.0-33.0); Mean Corpuscular Volume 87.3 fl (81.6-98.3); Mean Platelet Volume 10.5 fl (7.4-10.4); Platelet Count 282 10x3/uL (150-450); RBC Distribution Width 12.7 % (11.5-14.5); Red Blood Cell (RBC) Count 4.24 10x6/uL (3.90-5.03)
[2023-10-15 14:31] LABS: Anion Gap 12 mmol/L (10-20); BUN (Urea Nitrogen) 21 mg/dL (7.0-18.7); Calc. Creatinine Clearance 0 mL/min (70-130); Calcium 9.6 mg/dL (7.8-10.44); Carbon Dioxide 25 mmol/L (22-29); Chloride 107 mmol/L (98-107); Estimated GFR 91; Glucose 89 mg/dL (70-105); Potassium 4.8 mmol/L (3.5-5.1); Sodium 139 mmol/L (136-145)
== END 2023-10-15 13:31 | disposition home or self-care (01) ==
LOC: LABBT 13:30
PROVIDERS: ATTEND Orthopaedic Surgery
DX: Z01.812 Encounter for preprocedural laboratory examination (principal); S83.242A Other tear of medial meniscus, current injury, left knee, initial encounter; S83.282A Other tear of lateral meniscus, current injury, left knee, initial encounter
CPT/HCPCS: 80048; 85025